=== PATIENT | male | born 1965 | race Caucasian/White ===

== ENCOUNTER 2017-03-28 11:38 | Emergency (ER) | payer OTHER ==
[~2017-03-28 11:38] MED LIST: LEVAQUIN500 MG PO; LOPRESSOR50 MG PO; PRILOSEC10 MG PO; PROAIR HFA8.5 GM IH
--- NOTE | 2017-04-05 18:56 | ER ---
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 HISTORY OF PRESENT ILLNESS: This is a 51-year-old male, who was eating dinner and reading the newspaper and started to have chest pain last night. Then he did go to sleep. He actually said he slept better than he usually does. He usually wakes up multiple times. Today, he was so exhausted that he slept through the night. In fact, he usually wakes up without an alarm and his mom had to wake him up today. He just did not really feel right, so came into the ER. He rates his pain at 2/10 on arrival and his pain is all right-sided. COURSE IN THE EMERGENCY ROOM: EKG is done, shows sinus rhythm at a rate of 87, no ST elevation or depression, over-read by Dr. Sharma. The D-dimer is 0.42. CMP is normal. Cardiac enzymes are normal. CBC normal except for a hemoglobin of 12.6. His pain is actually resolved slightly on its own in the ER. I did speak with Dr. Painter regarding this patient. I think everything is normal at this time. I am discharging him home, and he will follow up with Dr. Willson within a week. CLINICAL IMPRESSION: Atypical chest pain. RIMA Ramon / Momo Sharma MD / lenny JOB #: [id number] CC: Momo Sharma MD, Attending Physician Nash Willson MD, Family Physician
== END 2017-03-28 14:30 | disposition home or self-care (01) ==
LOC: ER 11:38
DX: R07.89 Other chest pain (principal); K21.9 Gastro-esophageal reflux disease without esophagitis; F17.210 Nicotine dependence, cigarettes, uncomplicated